=== PATIENT | male | born 2000 | race Two or more races ===

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

== ENCOUNTER 2020-08-02 22:20 | Emergency (ER) | payer SELFPAY ==
[2020-08-02] MEDS ORDERED: Ketorolac 30 MG/ML SDV IVPUSH SCH (23:45)
[2020-08-02] MEDS ORDERED: Dextrose 5%-0.9% NaCl 1,000 ML IV SCH (23:45)
[2020-08-02] MEDS ORDERED: Ibuprofen 800 MG Tab PO ONE (23:54)
[2020-08-02] MEDS ORDERED: Metoclopramide 10 MG/2 ML SDV IVPUSH ONE (23:56)
[2020-08-02] MEDS ORDERED: HYDROmorphone 0.5 MG/0.5 ML Syringe IVPUSH ONE (23:56)
[2020-08-02] MEDS ORDERED: Acetaminophen 325 MG Tab PO ONE (23:56)
[2020-08-02] MEDS ORDERED: diphenhydrAMINE 50 MG/ML SDV IVPUSH ONE (23:56)
--- NOTE | 2020-08-02 23:57 | EDM.PDOC ---
ED HPI GENERAL MEDICAL PROBLEM - General Chief Complaint: General Stated Complaint: FEVER/MIGRAINE/VOMITED BLOOD Time Seen by Provider: 08/02/20 23:47 Source of Information: Reports: Patient History Limitations: Reports: No Limitations - History of Present Illness INITIAL COMMENTS - FREE TEXT/NARRATIVE: 19-year-old male comes to the ED complaining primarily of a headache and fever. He traveled from [place] 3 days ago on airplane up to [place] for work related activities. He denies cough or sputum production. He has not really had any chills. No nasal congestion. He states he gets frequent headaches and this was not as bad as what he is experienced in the past. He was most concerned that he may have came in contact with COVID-19 virus. He has generalized myalgia. He feels he is also lost his sense of smell. Onset: Gradual Onset Date: 08/01/20 Duration: Day(s):, Getting Worse Location: Reports: Generalized (Neurolyse myalgia with development of headache and loss of appetite and loss of sense of smell.) Quality: Reports: Other Severity: Moderate (Neurolyse myalgia with headache) Improves with: Reports: None, Medication (No relief with acetaminophen or Motrin.) Worsens with: Reports: Other Context: Reports: Other. Denies: Activity, Exercise (With standing up and exposure to light.), Lifting, Sick Contact, Trauma Associated Symptoms: Reports: Fever/Chills, Headaches, Loss of Appetite, Malaise, Weakness. Denies: No Other Symptoms, Confusion, Chest Pain, Cough, cough w sputum (Continuous occurrence), Diaphoresis, Nausea/Vomiting, Rash, Seizure, Shortness of Breath, Syncope Treatments REGULATORY LEADER: Reports: Acetaminophen, NSAIDS Headache Pain Score (Numeric/FACES): 7 - Related Data Allergies Allergy/AdvReac Type Severity Reaction Status Date / Time No Known Allergies Allergy Verified 08/02/20 22:48 Past Medical History - Past Health History Medical/Surgical History: Denies Medical/Surgical History Neurological History: Reports: Seizure Other Neuro History: epilepsy Social & Family History - Tobacco Use Smoking Status *Q: Never Smoker Second Hand Smoke Exposure: No - Caffeine Use Caffeine Use: Reports: Coffee - Recreational Drug Use Recreational Drug Use: No - Living Situation & Occupation Living situation: Reports: Single, Other (2 roomates in company housing) Occupation: Employed ([employer]) ED ROS GENERAL - Review of Systems Review Of Systems: See Below Constitutional: Reports: Fever, Chills, Malaise, Weakness, Fatigue, Decreased Appetite. Denies: Weight Loss HEENT: Reports: Other Respiratory: Denies: Shortness of Breath (Mild photosensitivity.), Wheezing, Pleuritic Chest Pain Cardiovascular: Reports: Lightheadedness. Denies: Chest Pain, Blood Pressure Problem, Claudication, Dyspnea on Exertion, Edema, Orthopnea (Low blood pressure is elevated at the time of exam.) Endocrine: Reports: Fatigue GI/Abdominal: Reports: Decreased Appetite, Nausea. Denies: Diarrhea, Vomiting : Reports: No Symptoms Musculoskeletal: Reports: Muscle Pain Skin: Reports: No Symptoms (Neurolyse myalgia.) Neurological: Reports: Headache, Other (Photophobia). Denies: Pre-Existing Deficit, Seizure, Syncope, Tingling, Trouble Speaking, Difficulty Walking Psychiatric: Reports: No Symptoms ED EXAM, GENERAL - Physical Exam Exam: See Below Exam Limited By: No Limitations General Appearance: Alert, WD/WN, No Apparent Distress, Other (Patient does feel warm to palpation. Nurses recorded temperature is 36.6. Heart rate is 65 and sinus respiratory is 20 sats 100% on room air BP was elevated initially 147/91 but came down to 134/82.) Eye Exam: Bilateral Eye: Normal Inspection, PERRL Ears: Normal TMs Throat/Mouth: Normal Inspection, Normal Lips, Normal Oropharynx Head: Atraumatic, Normocephalic Neck: Normal Inspection, Supple, Non-Tender, Full Range of Motion. No: Carotid Bruit, Lymphadenopathy (L), Lymphadenopathy (R) Respiratory/Chest: No Respiratory Distress, Lungs Clear, Normal Breath Sounds, No Accessory Muscle Use, Chest Non-Tender Cardiovascular: Normal Peripheral Pulses, Regular Rate, Rhythm, No Edema, No Gallop, No Murmur, No Rub Peripheral Pulses: 3+: Carotid (L), Carotid (R), Posterior Tibial (L), Posterior Tibial (R), Dorsalis Pedis (L), Dorsalis Pedis (R) GI/Abdominal: Normal Bowel Sounds, Soft, Non-Tender, No Organomegaly, No Abnormal Bruit, No Mass, Pelvis Stable, Other (No surgical scars.). No: Guarding, Rigid, Rebound Back Exam: Normal Inspection, Full Range of Motion. No: CVA Tenderness (L), CVA Tenderness (R) Extremities: Normal Inspection, Normal Range of Motion, Non-Tender, No Pedal Edema, Normal Capillary Refill Neurological: Alert, Oriented, CN II-XII Intact, Normal Cognition, No Motor/Sensory Deficits Psychiatric: Normal Affect, Normal Mood Skin Exam: Warm, Dry, Intact, Normal Color, No Rash Course - Vital Signs Last Recorded V/S: Last Vital Signs Temp 36.6 C 08/02/20 22:45 Pulse 65 08/02/20 22:45 Resp 20 08/02/20 22:45 BP 147/91 H 08/02/20 22:45 Pulse Ox 100 08/02/20 22:45 - Orders/Labs/Meds Orders: Active Orders 24 hr Category Date Time Status Chest 1V Frontal [CR] Routine Exams 08/03/20 01:00 Taken CBC WITH AUTO DIFF [HEME] Stat Lab 08/02/20 23:54 Results COMPREHENSIVE METABOLIC PN,CMP [CHEM] Stat Lab 08/02/20 23:54 Received CRP [C-REACTIVE PROTEIN] [CHEM] Stat Lab 08/02/20 23:54 Received DD [D-DIMER QUANTITATIVE] [COAG] Stat Lab 08/02/20 23:54 Received FERRITIN [CHEM] Stat Lab 08/02/20 23:54 Received LACTATE DEHYDROGENASE,LDH [CHEM] Stat Lab 08/02/20 23:54 Received TROPONIN I [CHEM] Stat Lab 08/02/20 23:54 Received Ketorolac [Toradol] Med 08/02/20 23:45 Active 30 mg IVPUSH ONETIME Medication Orders Ketorolac Tromethamine (Toradol) 30 mg IVPUSH ONETIME MALIKA Labs: Laboratory Tests 08/03/20 08/03/20 Range/Units 00:22 00:42 WBC 10.47 H (4.23-9.07) K/mm3 RBC 4.99 (4.63-6.08) M/mm3 Hgb 13.6 L (13.7-17.5) gm/dl Hct 41.7 (40.1-51.0) % MCV 83.6 (79.0-92.2) fl MCH 27.3 (25.7-32.2) pg MCHC 32.6 (32.2-35.5) g/dl RDW Std Deviation 45.1 H (35.1-43.9) fL Plt Count 210 (163-337) K/mm3 MPV 10.0 (9.4-12.3) fl Neut % (Auto) 53.8 (34.0-67.9) % Lymph % (Auto) 35.9 (21.8-53.1) % [place] % (Auto) 8.6 (5.3-12.2) % Eos % (Auto) 1.2 (0.8-7.0) Baso % (Auto) 0.3 (0.1-1.2) % Neut # (Auto) 5.63 H (1.78-5.38) K/mm3 Lymph # (Auto) 3.76 H (1.32-3.57) K/mm3 [place] # (Auto) 0.90 H (0.30-0.82) K/mm3 Eos # (Auto) 0.13 (0.04-0.54) K/mm3 Baso # (Auto) 0.03 (0.01-0.08) K/mm3 COVID-19 (RAUL) Negative (NEGATIVE) Meds: Medications Generic Name Dose Route Start Last Admin Trade Name Freq PRN Reason Stop Dose Admin Ketorolac Tromethamine 30 mg 08/02/20 23:45 Toradol IVPUSH ONETIME MALIKA Discontinued Medications Generic Name Dose Route Start Last Admin Trade Name Freq PRN Reason Stop Dose Admin Acetaminophen 975 mg 08/02/20 23:56 08/03/20 00:21 Tylenol PO 08/02/20 23:57 975 mg ONETIME ONE Administration Diphenhydramine HCl 25 mg 08/02/20 23:56 Benadryl IVPUSH 08/02/20 23:57 ONETIME ONE Hydromorphone HCl 0.5 mg 08/02/20 23:56 Dilaudid IVPUSH 08/02/20 23:57 ONETIME ONE Dextrose/Sodium Chloride 1,000 mls @ 999 mls/hr 08/02/20 23:45 Dextrose 5%-Normal Saline IV ASDIRECTED MALIKA Ibuprofen 800 mg 08/02/20 23:54 Motrin PO 08/02/20 23:55 ONETIME ONE Metoclopramide HCl 7.5 mg 08/02/20 23:56 Reglan IVPUSH 08/02/20 23:57 ONETIME ONE Prochlorperazine Maleate 5 mg 08/03/20 00:32 08/03/20 00:57 Compazine PO 08/03/20 00:33 5 mg ONETIME ONE Administration - Radiology Interpretation Free Text/Narrative:: 19-year-old male presents to the ED with generalized myalgia headache sore throat loss of sense of smell and is concerned about possibility of picking up COVID-19's during his travels from [place] to [place]. Examination does reveal him to look a little under the weather. He is warm to palpation on all nurses recorded temperature is normal. Ear nose and throat examination show no active infection and there is no cervical adenopathy. Air entry is equal to both lung ppier. Heart sounds are normal benign abdominal examination integument normal. Plan he will have routine lab work carried out included an COVID-19 test. He will have a single view chest x-ray as well. - Re-Assessments/Exams Free Text/Narrative Re-Assessment/Exam: 08/03/20 00:33 patient opted not to have an IV start at this time for medications. He will take 800 mg of Motrin for headache relief with Compazine 5 mg p.o. Labs will be drawn and a chest x-ray obtained. 08/03/20 01:37: Portable chest x-ray was within normal limits showing no abnormalities within the lung parenchyma. Cardiac silhouette is normal. Labs reveal a serum ferritin of 123 normal. Total white count was 10.47 with 53.8% neutrophils on the auto differential. Hemoglobin is 13.6 with hematocrit of 41.7. Platelet count 210,000. No banded neutrophils appreciated. Serum albumin is 4.2. AST was 23 with a BUN of 11 calcium 9.0 sodium 139 potassium 3.7 chloride 103 bicarb 30.4 glucose 94 creatinine was 0.89. Total protein 7.4 CRP was 0.7. COVID-19 test was negative. Troponin I was less than 0.017. D- dimer was less than 0.19. Patient was reassured of the findings. His headache was improved with oral medications only IV Compazine 5 and Motrin 800 mg. Reassured that he does not COVID-19 at this time. Note given to excuse him from the workplace today and tentatively will be able to return to work tomorrow. Departure - Departure Time of Disposition: 01:40 Disposition: Home, Self-Care 01 Condition: Fair Clinical Impression: Viral upper respiratory tract infection, Benign headache - Discharge Information *PRESCRIPTION DRUG MONITORING PROGRAM REVIEWED*: Not Applicable *COPY OF PRESCRIPTION DRUG MONITORING REPORT IN PATIENT GERTRUDE: Not Applicable Referrals: PCP,None [Primary Care Provider] - Forms: ED Department Discharge Additional Instructions: Computer was down at the time of his discharge. Please refer to written discharged notes. No medications were dispensed Sepsis Event Note (ED) - Evaluation Sepsis Screening Result: No Definite Risk - Focused Exam Vital Signs: Vital Signs Temp Pulse Resp BP Pulse Ox 08/02/20 22:45 36.6 C 65 20 147/91 H 100 - My Orders Last 24 Hours: My Active Orders 08/02/20 23:45 Ketorolac [Toradol] 30 mg IVPUSH ONETIME 08/02/20 23:54 CBC WITH AUTO DIFF [HEME] Stat COMPREHENSIVE METABOLIC PN,CMP [CHEM] Stat CRP [C-REACTIVE PROTEIN] [CHEM] Stat DD [D-DIMER QUANTITATIVE] [COAG] Stat FERRITIN [CHEM] Stat LACTATE DEHYDROGENASE,LDH [CHEM] Stat TROPONIN I [CHEM] Stat 08/03/20 01:00 Chest 1V Frontal [CR] Routine - Assessment/Plan Last 24 Hours: My Active Orders 08/02/20 23:45 Ketorolac [Toradol] 30 mg IVPUSH ONETIME 08/02/20 23:54 CBC WITH AUTO DIFF [HEME] Stat COMPREHENSIVE METABOLIC PN,CMP [CHEM] Stat CRP [C-REACTIVE PROTEIN] [CHEM] Stat DD [D-DIMER QUANTITATIVE] [COAG] Stat FERRITIN [CHEM] Stat LACTATE DEHYDROGENASE,LDH [CHEM] Stat TROPONIN I [CHEM] Stat 08/03/20 01:00 Chest 1V Frontal [CR] Routine
[2020-08-03] MEDS ORDERED: Prochlorperazine 5 MG Tab PO ONE (00:32)
--- NOTE | 2020-08-03 08:43 | CR ---
Chest: Portable view of the chest was obtained. Comparison: No prior chest imaging is available. Heart size and mediastinum are within normal limits for portable technique. Lungs are clear with no acute parenchymal change. Bony structures are grossly intact. Impression: 1. Nothing acute is appreciated on portable chest x-ray. Diagnostic code #1 This report was dictated in MDT
== END 2020-08-03 01:55 | disposition home or self-care (01) ==
LOC: JD.ED 22:20
DX: J06.9 Acute upper respiratory infection, unspecified (principal); Z20.828 Contact with and (suspected) exposure to other viral communicable diseases
CPT/HCPCS: 36415; 71045; 71045-26; 80053; 82728; 83615; 84484; 85025; 85379; 86140; 99283; 99284-25; A9270-GY; Q0164; U0002